=== PATIENT | female | born 1985 | race Hispanic/Latino ===

== ENCOUNTER 2017-06-17 20:22 | Emergency (ER) | payer BC, OTHER ==
[~2017-06-17 20:22] MED LIST: ACET1TAB12 PO
== END 2017-06-17 22:44 | disposition left against medical advice (07) ==
LOC: EDH 20:22
DX: M79.672 Pain in left foot (principal); Z53.21 Procedure and treatment not carried out due to patient leaving prior to being seen by health care provider